=== PATIENT | female | born 1995 | race Hispanic/Latino ===

== ENCOUNTER 2016-07-15 20:50 | Emergency (ER) | payer OTHER ==
[~2016-07-15] VITALS: Ht 157.5 cm; Wt 73.9 kg
[~2016-07-15 20:50] MED LIST: DULOXETINE HCL30 MG PO; ISENTRESS400 MG PO; NAPROSYN500 M1 PO; REXULTI2 M1 PO; TRUVADA 200 MG-1 TAB PO; ZOFRAN ODT4 MG PO; [UNRECOGNIZED DRUG - OTHER] PO
[2016-07-15 20:55] VITALS: BP 153/106
--- NOTE | 2016-07-15 21:16 | ED THROAT/DENTAL COMPLAINT ---
History of Present Illness General Chief Complaint: Sore Throat, Dental Pain Stated Complaint: "IM HAVING SEVERE TOOTH ACHE PAIN" Source: patient, old records Exam Limitations: no limitations Vital Signs & Intake/Output Vital Signs & Intake/Output Vital Signs Date Time Temp Pulse Resp B/P Pulse O2 O2 Flow FiO2 Ox Delivery Rate 07/15 2054 98.9 98 18 153/106 98 Room Air Allergies Coded Allergies: NO KNOWN ALLERGIES (05/12/15) Reconcile Medications Amoxicillin/Potassium Clav (Augmentin 875-125 Tablet) 875 MG-125 MG TABLET 1 TAB PO BID DENTAL Brexpiprazole (Rexulti) 2 MG TABLET 1 TAB PO DAILY MENTAL HEALTH (Reported) Duloxetine HCl 30 MG CAPSULE.DR 3 CAP PO DAILY MENTAL HEALTH (Reported) Naproxen (Naprosyn) 500 MG TABLET 1 TAB PO Q12H PRN pain Tramadol HCl (Ultram) 50 MG TABLET 1 TAB PO TID PRN PAIN Triage Note: PT TO [facility] WITH C/O LL WISDOME TOOTHACHE 03/10. PT HAS AN APPOINTMENT ON 07/22 WITH ORAL SURGEON. PT HAS BEEN TAKING MOTRIN WITH NO PAIN RELIEF. Triage Nurses Notes Reviewed? yes Onset: Abrupt Duration: day(s): (3), constant Timing: recent history Injury Environment: home Severity: moderate, severe Severity Numbers: 10 Modifying Factors: Worsens With: eating. Associated Symptoms: denies : No Patient currently breastfeeds: No HPI: 21-year-old female presents to emergency room complaining of left lower dental pain for the past 3 days. She is scheduled to see a oral surgeon next Thursday regarding her symptoms. She states she's had history of similar episodes in the past there is no recent injury trauma no fever no chills. She's been taking ibuprofen and Tylenol without improvement for her pain. She denies any nausea vomiting or difficulty swallowing. Symptoms are worse with palpation and chilling she denies any other dental pain no jaw pain or facial swelling. Pain is sharp and aching Past History Travel History Traveled to [place] past 21 day No Medical History Any Pertinent Medical History? see below for history Neurological: seizure, vertigo EENT: NONE Cardiovascular: HEART MURMUR Respiratory: NONE Gastrointestinal: NONE Hepatic: NONE Renal: NONE Musculoskeletal: NONE Psychiatric: anxiety, depression, PTSD Endocrine: NONE Blood Disorders: NONE Cancer(s): NONE Surgical History Surgical History: N Psychosocial History Who do you live with Family What is your primary language [place] Tobacco Use: Never used ETOH Use: denies use Illicit Drug Use: marijuana Family History Hx Contributory? No Review of Systems Review of Systems Constitutional: Reports: see HPI. All Other Systems: Reviewed and Negative Comments Review of systems: See HPI, All other systems negative. Constitutional, no chills no fever, no malaise HEENT: No visual changes no sore throat no congestion Cardiovascular: No chest pain , no palpitation Skin, no rashes, no change in skin Respiratory: No dyspnea no cough no sputum GI: No nausea no vomiting, no diarrhea : No dysuria Muscle skeletal: No joint pain, no back pain, no neck pain, Neurologic: No numbness n no headache Psych: No stress Heme/endocrine: No bruising no bleeding Immunology: No lymphadenopathy Physical Exam Physical Exam General Appearance: well developed/nourished, alert, awake Mouth/Throat: pharynx normal, dental tenderness Comments: Well-developed well-nourished patient in no apparent distress. Head/Face: Atraumatic, no maxillary/frontal sinus tenderness, no facial swelling Eyes: PERRL, EOMI, Ear:External auditory canals clear. Nose: atraumatic.Normal inspection Throat: Dental tenderness left lower, no gingival abscess no trismus no uvula displacement Moist mucous membranes.Pharynx normal. No pharyngeal erythema/ exudate seen. No stridor/drooling or assymetry. No swelling or edema. Neck: Supple, no lymphadenopathy, FROM Back: FROM, Nontender Cardiovascular: Regular rate and rhythms no murmurs Respiratory: Chest nontender.There were no bony deformities, no asymmetry. No respiratory distress. Patient speaking in full complete sentences. Breath sounds clear to auscultation bilaterally: NO W/R/R Extremities: full range of motion Neuro: Alert and oriented x3 Skin: Warm & dry;No appreciable rash on exposed skin Psych: Mood affect normal, normal memory normal judgment. Core Measures ACS in differential dx? No Severe Sepsis Present: No Septic Shock Present: No Progress Differential Diagnosis: carious tooth, odontogenic abscess, rosanne-tonsillar abscess Plan of Care: Current Medications Sig/Emily Start time Last Medication Dose Stop Time Status Admin Amoxicillin/ 500 MG ONCE ONE 07/15 2129 UNVr Clavulanate Potassium 07/15 2130 (Augmentin) Tramadol HCl 50 MG ONCE ONE 07/15 2129 UNVr (Ultram) 07/15 2130 Advised the patient follow up with her oral surgeon sooner than next week prescription for Ultram, and augmentin provided a stroller questioned she feels control plan cleared for discharge (MARTINE DIAZ) Departure Departure Time of Disposition: 2121 Disposition: HOME OR SELF CARE Condition: Stable Clinical Impression Primary Impression: Toothache Referrals: PATIENT HAS NO PRIMARY CARE DR (PCP/Family) Additional Instructions: Follow-up with your oral surgeon tomorrow to see if they can see you sooner. Ultram as directed Augmentin to prevent infection. Ibuprofen 800 mg every 8 hours These prescriptions were sent to [facility] pharmacy Departure Forms: Customer Survey General Discharge Information Prescriptions: Current Visit Scripts Tramadol HCl (Ultram) 1 TAB PO TID PRN PAIN #10 TAB Amoxicillin/Potassium Clav (Augmentin 875-125 Tablet) 1 TAB PO BID #14 TAB
[2016-07-15] MEDS ORDERED: AUGMENTIN 875-1 EACH PO (21:25)
[2016-07-15] MEDS ORDERED: ULTRAM50 M1 PO (21:25)
== END 2016-07-15 21:41 ==
LOC: ERH 20:50
DX: K08.89 Other specified disorders of teeth and supporting structures (principal)
CPT/HCPCS: J3490